=== PATIENT | female | born 1990 | race American Indian/Alaskan Native ===

== ENCOUNTER 2017-10-25 20:27 | Emergency (ER) | payer SELFPAY ==
[2017-10-25 20:33] VITALS: BP 108/71
[2017-10-25] MEDS ORDERED: NACL 0.9% 1000 ML 1,000 ML IV ONE ×2 (20:52→23:04)
[2017-10-25 21:20] LABS: Basophils % (Auto) 0.4 % (0.0-1.8); Eosinophils # (Auto) 0.1 K/mm3 (0.0-0.4); Hematocrit 36.9 % (30.3-42.9); Hemoglobin 12.1 gm/dl (10.1-14.3); Lymphocytes % (Auto) 35.8 % (13.4-35.0); Mean Corpuscular HGB Conc 33 % (30-34); Mean Corpuscular Hemoglobin 28 pg (28-32); Mean Corpuscular Volume 86 fl (79-97); Monocytes # (Auto) 0.6 K/mm3 (0.0-0.8); Monocytes % (Auto) 6.7 % (0.0-7.3); Platelet Count 234 K/mm3 (140-440); Red Blood Count 4.28 M/mm3 (3.65-5.03); Red Cell Distribution Width 15.3 % (13.2-15.2)
[2017-10-25 21:29] LABS: Alanine Aminotransferase 19 units/L (7-56); Albumin 4.3 g/dL (3.9-5); BUN/Creatinine Ratio 13; Blood Urea Nitrogen 8 mg/dL (7-17); Calcium 9.2 mg/dL (8.4-10.2); Hemolysis Index 4; Lipase 73 units/L (13-60)
[2017-10-25 21:50] LABS: Bacteria,Urine 1+ /HPF (Negative); Bilirubin,Urine NEG (Negative); Blood,Urine NEG (Negative); Color,Urine Yellow (Yellow); Mucus,Urine FEW /HPF; Protein,Urine <15 mg/dL mg/dL (Negative); Urobilinogen,Urine < 2.0 mg/dL (<2.0); WBC,Urine < 1.0 /HPF (0.0-6.0)
--- NOTE | 2017-10-25 22:43 | Emergency Department Report ---
ED Abdominal Pain HPI - General Chief Complaint: Abdominal Pain Stated Complaint: STOMACH PAIN Time Seen by Provider: 10/25/17 22:42 Source: patient Mode of arrival: Ambulatory Limitations: No Limitations - History of Present Illness Initial Comments: Patient complains of lower abdominal pain and we started yesterday. She denied any history of trauma or fall. She is unsure if she is or not. MD Complaint: abdominal pain -: Sudden, days(s) (1) Location: suprapubic Radiation: none Migration to: no migration Severity scale (0 -10): 3 Quality: cramping, dull Consistency: constant Improves With: nothing Worsens With: nothing Associated Symptoms: denies other symptoms - Related Data Allergies Allergy/AdvReac Type Severity Reaction Status Date / Time No Known Allergies Allergy Verified 10/26/17 00:00 ED Review of Systems ROS: Stated complaint: STOMACH PAIN Other details as noted in HPI Comment: All other systems reviewed and negative Constitutional: denies: chills, fever ENT: denies: ear pain Respiratory: denies: cough, shortness of breath Cardiovascular: denies: chest pain, palpitations, dyspnea on exertion Endocrine: no symptoms reported Gastrointestinal: denies: abdominal pain, nausea, vomiting, diarrhea Genitourinary: denies: urgency, dysuria, frequency Musculoskeletal: denies: back pain Skin: denies: rash, lesions Neurological: denies: headache, weakness, numbness Psychiatric: denies: anxiety, depression Hematological/Lymphatic: denies: easy bleeding, easy bruising ED Past Medical Hx - Past Medical History Previous Medical History?: No - Surgical History Past Surgical History?: No - Social History Smoking Status: Never Smoker Substance Use Type: Marijuana ED Physical Exam - General Limitations: No Limitations General appearance: alert, in no apparent distress - Head Head exam: Present: atraumatic, normocephalic, normal inspection - Eye Eye exam: Present: normal appearance, PERRL, EOMI Pupils: Present: normal accommodation - ENT ENT exam: Present: normal exam, normal orophraynx, mucous membranes moist - Neck Neck exam: Present: normal inspection, full ROM. Absent: tenderness - Respiratory Respiratory exam: Present: normal lung sounds bilaterally. Absent: respiratory distress, wheezes, rales, rhonchi, stridor - Cardiovascular Cardiovascular Exam: Present: regular rate, normal rhythm, normal heart sounds - GI/Abdominal GI/Abdominal exam: Present: soft, normal bowel sounds. Absent: distended, tenderness, guarding, rebound, rigid - External exam: Present: other (Not done because patient left the ED prior to pelvic exam. Unable to locate the patient.) - Extremities Exam Extremities exam: Present: normal inspection, full ROM, normal capillary refill. Absent: tenderness - Back Exam Back exam: Present: normal inspection, full ROM. Absent: tenderness, CVA tenderness (R), CVA tenderness (L) - Neurological Exam Neurological exam: Present: alert, oriented X3, CN II-XII intact - Psychiatric Psychiatric exam: Present: normal affect, normal mood - Skin Skin exam: Present: warm, dry, intact, normal color. Absent: rash ED Course Vital Signs 10/25/17 20:31 Temperature 99.3 F Pulse Rate 102 H Respiratory 18 Rate Blood Pressure 108/71 O2 Sat by Pulse 98 Oximetry - Reevaluation(s) Reevaluation #1: 10/26/17 01:49 Patient eloped from the emergency room without informing anyone. Attempts to locate her was unsuccessful. ED Medical Decision Making - Lab Data Result diagrams: 10/25/17 20:57 10/25/17 20:57 - Radiology Data Radiology results: report reviewed, image reviewed - Medical Decision Making Pelvic pain. Critical care attestation.: If time is entered above; I have spent that time in minutes in the direct care of this critically ill patient, excluding procedure time. ED Disposition Clinical Impression: Abdominal pain during Qualifiers: Trimester: first trimester Qualified Code(s): O26.891 - Other specified related conditions, first trimester Disposition: Z-07 ELOPED Is pt being admited?: No Does the pt Need Aspirin: No Condition: Stable Instructions: Abdominal Pain (ED) Referrals: PRIMARY CARE, [Primary Care Provider] - 3-5 Days Time of Disposition: 01:37
--- NOTE | 2017-10-26 00:23 | Ultrasound Report ---
FINAL REPORT EXAM: US OB < = 14 WEEKS FETUS HISTORY: pelvic pain TECHNIQUE: Transabdominal imaging was obtained of the pelvis. FINDINGS: The uterus is anteverted measuring 10.2 cm x 5.4 cm x 6.3 cm. Within the uterus is a small sac-like structure with a mean sac diameter of 9.7 mm. This would correspond to a 5 week 5 day . A pole or yolk sac is not yet identified. There is minimal free fluid. The right ovary is not seen. The left ovary measures 4.6 cm x 4.2 cm x 2.8 cm within the left ovary is a functional cyst measuring 2.8 cm in diameter. IMPRESSION: Intrauterine small sac-like structure without demonstrable yolk sac or pole. Repeat imaging is recommended within 1 week to confirm a viable IUP versus demise. Minimal free fluid the pelvis. 2.8 cm functional cyst in left ovary.
--- NOTE | 2017-10-26 00:24 | Ultrasound Report ---
FINAL REPORT EXAM: US OB TRANSVAGINAL HISTORY: pelvic pain TECHNIQUE: Transvaginal imaging was obtained of the pelvis. FINDINGS: The uterus is anteverted measuring 10.2 cm x 5.4 cm x 6.3 cm. Within the uterus is a small sac-like structure with mean sac diameter of 9.7 mm. This corresponds to a 5 week 5 day . A yolk sac or pole is not yet identified. There is minimal free fluid in the pelvis. The right ovary is not seen. The left ovary measures 4.6 cm x 4.2 cm x 2.8 cm. Within the left ovary is a functional cyst measuring 2.8 cm in diameter. IMPRESSION: Intrauterine small sac-like structure corresponding to 5 week 5 day . A yolk sac or pole is not yet identified. Repeat imaging is recommended in 1 week to confirm viability versus demise. Minimal free fluid the pelvis. 2.8 cm functional cyst in left ovary.
== END 2017-10-26 01:30 | disposition left against medical advice (07) ==
LOC: ED 20:27
DX: O26.891 Other specified pregnancy related conditions, first trimester (principal); R10.2 Pelvic and perineal pain
CPT/HCPCS: 36415; 76801; 76817; 80053; 81001; 83690; 84702; 84703; 85025